=== PATIENT | male | born 1970 | race Asian ===

== ENCOUNTER 2019-08-04 13:13 | Emergency (ER) | payer MEDICAID ==
[~2019-08-04] VITALS: Ht 170.2 cm; Wt 90.7 kg
[2019-08-04 13:18] VITALS: Ht 170.2 cm; Wt 90.7 kg
[2019-08-04 14:13] LABS: BASOPHIL % 0.3 % (0-2); PLATELET COUNT 244 x10^3mcL (130-400); RED CELL DISTRIBUTION WIDTH 14.5 % (11.5-14.5)
[2019-08-04 14:51] LABS: CALCIUM 9.1 mg/dL (8.5-10.1); CARBON DIOXIDE 26.7 mmol/L (21-32); CREATININE SERUM 1.4 mg/dL (0.7-1.3); POTASSIUM SERUM 3.6 mmol/L (3.5-5.1)
[2019-08-04 14:55] LABS: ALBUMIN 4.4 g/dL (3.4-5.0); BILIRUBIN TOTAL 0.7 mg/dL (0.20-1.00)
[2019-08-04 15:25] LABS: TOTAL PROTEIN, SERUM 8.3 g/dL (6.4-8.2)
[2019-08-04 17:00] VITALS: BP 128/76
== END 2019-08-04 17:00 | disposition home or self-care (01) ==
LOC: ED 13:13
PROVIDERS: Emergency Medicine
DX: N13.2 Hydronephrosis with renal and ureteral calculous obstruction (principal); I10 Essential (primary) hypertension
CPT/HCPCS: J1885; J2270; J2405; J3010